=== PATIENT | male | born 1995 | race Caucasian/White ===

== ENCOUNTER 2017-01-25 17:30 | Emergency (ER) | payer OTHER ==
--- NOTE | 2017-01-25 17:35 | ED Physician Documentation ---
PD HPI UPPER EXT INJURY - Stated complaint Stated Complaint: R HAND INJ - History obtained from History obtained from: Patient - History of Present Illness Location: Right, Hand Type of injury: Blunt / blow (he was at work and holding part of small trailer type thing and another rolled into it, causing direct impact then crushing force to the right hand as he was holding a handle. It took about 3-5 seconds for coworker to get the hand freed. Pain in hand. Denies other injury. Has swelling to dorsal mid hand, hurts with finger movements, and has some numbness in middle fingers.) Where injury occurred: Work Timing - onset: Today Timing - duration: Hours (1) Timing - details: Abrupt onset, Still present Worsened by: Moving, Palpating Associated symptoms: Tingling, Swelling. No: Weakness, Discolored Contributing factors: No: Anticoagulated Similar symptoms before: Has not had sx before Recently seen: Not recently seen Review of Systems Constitutional: denies: Fever, Chills Nose: denies: Congestion Throat: denies: Sore throat Respiratory: denies: Cough GI: denies: Vomiting, Diarrhea Skin: denies: Abrasion (s), Laceration (s) Neurologic: denies: Near syncope PD PAST MEDICAL HISTORY - Past Medical History Neuro: None Endocrine/Autoimmune: None Musculoskeletal: None - Present Medications Home Medications: Ambulatory Orders Medication Instructions Recorded Confirmed No Known Home Medications [No 01/25/17 01/25/17 Known Home Medications] - Allergies Allergies/Adverse Reactions: Allergies Allergy/AdvReac Type Severity Reaction Status Date / Time No Known Drug Allergies Allergy Verified 01/25/17 17:39 Results - Vitals Vitals: Vital Signs - 24 hr 01/25/17 17:35 Temperature 36.1 C L Heart Rate 89 Respiratory 16 Rate Blood Pressure 151/85 H O2 Saturation 99 Oxygen O2 Source Room air - Rads (name of study) right hand Radiology: Prelim report reviewed, EMP read contemporaneously (no fractures) PD MEDICAL DECISION MAKING - ED course Complexity details: reviewed results, considered differential (given meds for pain. Will get xray. Will give him ice for swelling. ), d/w patient Departure - Departure Disposition: 01 Home, Self Care Clinical Impression: Hand crush injury Qualifiers: Encounter type: initial encounter Laterality: right Qualified Code(s): S67.21XA - Crushing injury of right hand, initial encounter Condition: Stable Record reviewed to determine appropriate education?: Yes Instructions: ED Contusion Hand Comments: No fractures. Sreedhar wrap, ice and elevate often for a day for swelling. Ibuprofen or Tylenol for pain as needed. Less use of hand if needed for 1-2 days. Recheck if not better over a few days. Forms: Activity restrictions
[2017-01-25 17:39] VITALS: BP 151/85
[2017-01-25] MEDS ORDERED: ACETAMINOPHEN 325 MG TABLET PO ONE (17:42)
[2017-01-25] MEDS ORDERED: IBUPROFEN 600 MG TABLET PO STA (17:42)
[2017-01-25] MEDS ORDERED: IBUPROFEN 600 MG TABLET PO ONE (17:42)
[2017-01-25] MEDS ORDERED: ACETAMINOPHEN 325 MG TABLET PO STA (17:42)
--- NOTE | 2017-01-25 18:12 | XRAY Preliminary Report ---
Exam: XR Hand 3 View RT IMPRESSION: Normal hand radiography. [facility] SITE ID: [id number]
--- NOTE | 2017-01-25 18:15 | XRAY Report ---
EXAM: RIGHT HAND RADIOGRAPHY EXAM DATE: 01/25/2017 05:59 PM. CLINICAL HISTORY: Impact/crush injury at work. COMPARISON: None. TECHNIQUE: 3 views. FINDINGS: Bones: Normal. No fractures or bone lesions. Joints: Normal. No subluxations. Soft Tissues: Unremarkable. IMPRESSION: Normal hand radiography. [facility] Referring Provider Line: [phone] SITE ID: [id number]
== END 2017-01-25 18:20 | disposition home or self-care (01) ==
LOC: ED 17:30
DX: S67.21XA Crushing injury of right hand, initial encounter (principal); W23.0XXA Caught, crushed, jammed, or pinched between moving objects, initial encounter; Y93.89 Activity, other specified; Y92.89 Other specified places as the place of occurrence of the external cause; Y99.0 Civilian activity done for income or pay
CPT/HCPCS: 73130; 99283; A9270

== ENCOUNTER 2018-10-05 07:48 | Emergency (ER) | payer OTHER ==
[2018-10-05 08:06] VITALS: BP 139/82
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
== END 2018-10-05 09:18 | disposition home or self-care (01) ==
LOC: ED 07:48
DX: S46.911A Strain of unspecified muscle, fascia and tendon at shoulder and upper arm level, right arm, initial encounter (principal); V89.2XXA Person injured in unspecified motor-vehicle accident, traffic, initial encounter
CPT/HCPCS: 99283

== ENCOUNTER 2022-02-01 13:54 | Emergency (ER) | payer OTHER ==
[2022-02-01 14:30] LABS: RAPID STREP SCREEN Negative (Negative)
[2022-02-01 15:03] VITALS: BP 118/62
--- NOTE | 2022-02-01 15:40 | ED Physician Documentation ---
History of Present Illness - Stated complaint Stated Complaint: COUGH/CONGESTION - Chief complaint Chief Complaint: Resp - History obtained from History obtained from: Patient - History of Present Illness Timing: How many weeks ago (1) Pain level max: 0 Pain level now: 0 - Additonal information Additional information: 26-year-old male presents to the emergency department with cough, nasal congestion for the past 1 week. No fevers. No chills. Negative COVID test. He states he is just not improved so came here for evaluation. [place] [employer] [place]. No other medical problems. No medications at home. Does not smoke. Review of Systems Constitutional: denies: Fever, Chills Nose: reports: Rhinorrhea / runny nose, Congestion Throat: denies: Sore throat Cardiac: denies: Chest pain / pressure Respiratory: reports: Cough. denies: Dyspnea, Wheezing GI: denies: Nausea, Vomiting, Diarrhea Skin: denies: Rash Musculoskeletal: denies: Neck pain, Back pain Neurologic: denies: Headache PD PAST MEDICAL HISTORY - Past Medical History Past Medical History: No Endocrine/Autoimmune: None Musculoskeletal: None - Past Surgical History Past Surgical History: No - Present Medications Home Medications: Ambulatory Orders Medication Instructions Recorded Confirmed Ibuprofen [Motrin] 800 mg PO Q8H PRN #30 tablet 10/05/18 Benzonatate [Tessalon] 200 mg PO TID PRN #30 cap 02/01/22 Cetirizine HCl/Pseudoephedrine 1 each PO BID PRN #30 ea 02/01/22 [Zyrtec-D Tablet] - Allergies Allergies/Adverse Reactions: Allergies Allergy/AdvReac Type Severity Reaction Status Date / Time No Known Drug Allergies Allergy Verified 02/01/22 14:03 - Social History Does the pt smoke?: No Smoking Status: Never smoker Does the pt drink ETOH?: No Does the pt have substance abuse?: No - Immunizations Immunizations are current?: Yes - POLST Patient has POLST: No PD ED PE NORMAL - Vitals Vital signs reviewed: Yes - General General: Alert and oriented X 3, No acute distress - HEENT HEENT: Ears normal, Moist mucous membranes, Pharynx benign - Neck Neck: Supple, no meningeal sign - Cardiac Cardiac: RRR, Strong equal pulses - Respiratory Respiratory: No respiratory distress, Clear bilaterally - Abdomen Abdomen: Soft, Non tender, Non distended - Derm Derm: Warm and dry - Neuro Neuro: Alert and oriented X 3 - Psych Psych: Normal mood, Normal affect Results - Vitals Vitals: Vital Signs - 24 hr 02/01/22 02/01/22 13:59 15:03 Temperature 36.5 C 36.5 C Heart Rate 80 74 Respiratory 16 12 Rate Blood Pressure 125/61 118/62 O2 Saturation 100 100 Oxygen O2 Source Room air - Labs Labs: Laboratory Tests 02/01/22 14:05 Group A Strep Rapid Negative PD MEDICAL DECISION MAKING - ED course Complexity details: considered differential, d/w patient ED course: Patient with what appears to be a viral upper respiratory infection. No evidence of pneumonia or sepsis. No hypoxia. No respiratory distress. No indication for x-ray. We will have him follow-up with his doctor for further care. Patient counseled regarding signs and symptoms for which I believe and u rgent re-evaluation would be necessary. Patient with good understanding of and agreement to plan and is comfortable going home at this time This document was made in part using voice recognition software. While efforts are made to proofread this document, sound alike and grammatical errors may occur. Departure - Departure Disposition: 01 Home, Self Care Clinical Impression: Viral URI Condition: Good Instructions: ED URI Viral Follow-Up: NILE BARBOZA MD [Primary Care Provider] - Within 1 week Prescriptions: Benzonatate [Tessalon] 200 mg PO TID PRN #30 cap PRN Reason: Cough Cetirizine HCl/Pseudoephedrine [Zyrtec-D Tablet] 1 each PO BID PRN #30 ea PRN Reason: nasal congestion Comments: Your prescriptions were sent to the [facility] pharmacy. Please f ollow-up with your doctor for further care. This will likely last for 2 to 2- 1/2 weeks. Discharge Date/Time: 02/01/22 15:50
== END 2022-02-01 15:50 | disposition home or self-care (01) ==
LOC: ED 13:54
DX: J06.9 Acute upper respiratory infection, unspecified (principal); Z20.822 Contact with and (suspected) exposure to COVID-19
CPT/HCPCS: 87070; 87430; 99283

== ENCOUNTER 2022-09-13 09:05 | Emergency (ER) | payer OTHER ==
--- NOTE | 2022-09-13 12:15 | ED Physician Documentation ---
PD HPI BACK PAIN - Stated complaint Stated Complaint: BACK PX - Chief complaint Chief Complaint: Back Pain - History obtained from History obtained from: Patient - History of Present Illness Timing - onset: Yesterday Timing - duration: Days (1) Timing - details: Abrupt onset, Still present Location: Lower, Left Quality: Pain, Spasm, Other (radiates down left posterior leg. He said onset was abrupt when lifting 100 lb weight at the gym. He thought his alignment was straight. Sudden pain with radiation to posterior left thigh and feeling of tingling down leg that lasted briefly.) Associated symptoms: Numbness (for brief few seconds as the pain started and again this morning when he bent to lift his little son.). No: Fever, Weakness Worsened by: Movement, Twisting. No: Palpation Contributing factors: Lifting Similar symptoms before: Has not had sx before Recently seen: Not recently seen Review of Systems Constitutional: denies: Fever, Chills GI: denies: Abdominal Pain Musculoskeletal: reports: Back pain Neurologic: denies: Focal weakness PD PAST MEDICAL HISTORY - Past Medical History Cardiovascular: None Respiratory: None Neuro: None Endocrine/Autoimmune: None Musculoskeletal: None - Past Surgical History Past Surgical History: No - Present Medications Home Medications: Ambulatory Orders Medication Instructions Recorded Confirmed HYDROcod/ACETAM 5/325 [Weldona 5/325] 1 ea PO Q6H PRN #18 tablet 09/13/22 HYDROcod/ACETAM 5/325 [Weldona 5/325] 1 ea PO Q6H PRN #18 tablet 09/13/22 Meloxicam [Mobic] 7.5 mg PO BID 10 Days #20 tablet 09/13/22 tiZANidine [Zanaflex] 4 mg PO Q8H PRN #25 tablet 09/13/22 - Allergies Allergies/Adverse Reactions: Allergies Allergy/AdvReac Type Severity Reaction Status Date / Time No Known Drug Allergies Allergy Verified 09/13/22 09:30 - Social History Does the pt smoke?: No Smoking Status: Never smoker Does the pt drink ETOH?: No Does the pt have substance abuse?: No - Immunizations Immunizations are current?: Yes - POLST Patient has POLST: No PD ED PE NORMAL - Vitals Vital signs reviewed: Yes - General General: Alert and oriented X 3, Well developed/nourished, Other (appears uncomfortable with guarded ROM of the lower back. ) - Abdomen Abdomen: Soft, Non tender - Back Back: No CVA TTP, No spinal TTP (he is tender left lumbar to SI area. No noted deformity. ) - Derm Derm: Normal color, Warm and dry - Neuro Neuro: Alert and oriented X 3, No motor deficit, No sensory deficit, Other (normal patellar reflexes. ) Results - Vitals Vitals: Oxygen O2 Source Room air - Rads (name of study) lumbar CT Radiology: Prelim report reviewed (No acute process, normal vertebrae and discs/canal space. ), See rad report PD Medical Decision Making - ED course Complexity details: reviewed results (no acute disc process nor compressive deformities. No mass/tumors/etc. ), considered differential (pain is left lower back but it was abrupt onset during vertical load of heavy lifting, with some neuro symptoms down left leg, so my concern is for compression injury and herniated disc in particular. ), d/w patient Drug Therapy Requiring Monitoring for Toxicity: given IM Toradl for pain. He is driving home so not given opioids here. Departure - Departure Disposition: 01 Home, Self Care Clinical Impression: Acute myofascial strain of lumbosacral region, Radiculitis Condition: Stable Record reviewed to determine appropriate education?: Yes Instructions: ED Sprain Strain Lumbar Follow-Up: NILE BARBOZA MD [Primary Care Provider] - Prescriptions: Meloxicam [Mobic] 7.5 mg PO BID 10 Days #20 tablet HYDROcod/ACETAM 5/325 [Weldona 5/325] 1 ea PO Q6H PRN #18 tablet PRN Reason: Pain HYDROcod/ACETAM 5/325 [[place]eldona 5/325] 1 ea PO Q6H PRN #18 tablet PRN Reason: Pain tiZANidine [Zanaflex] 4 mg PO Q8H PRN #25 tablet PRN Reason: Spasms Comments: Your CT scan does not show any acute fracture, compression, dislocation, herniated disc or nerve root compression. The radiology report has actually just resulted and does not see any abnormality either. Presume an acute muscle strain with some pressure or spasming around the nerves leading to some of the radiation of symptoms into the leg. There is no signs of "pinched nerve" coming from the spine area. We will treat this with gentle range of motion and stretching, heat for the low back, chiropractic or massage are good as well. Avoid heavy lifting or repetitive bending or use for the next 3 to 5 days as this is improving. Anti-inflammatories as well as muscle relaxant to help with the symptoms. Add Tylenol every 4-6 hours if needed for pain or hydrocodone if needed for worse pain. I sent prescriptions for these to the [facility] pharmacy in [place]. I gave you a work note for 3 days. I am prescribing a short course of narcotic pain medication for you. These are potentially dangerous and addictive medications that should be used carefully. These medications may constipate you. Take an [id number] stool softener such as docusate twice daily with plenty of water while taking these medications. If you go 24 hours without a bowel movement, take [id number] MiraLAX, per package instructions. Do not drink or drive while taking these medications. If you received narcotic or sedating medications while in the emergency department do not drive for 24 hours. Store this medication in a safe, secure place and out of reach of children. It is a violation of federal law to give or sell this medication to another person or to use in a manner other than prescribed. The ED will not refill narcotic prescriptions, including prescriptions lost or stolen. You can dispose of unwanted medications at the [facility]'s office or at several pharmacies such as [facility]. Forms: Activity restrictions Discharge Date/Time: 09/13/22 14:43
[2022-09-13] MEDS ORDERED: KETOROLAC 30 MG/ML VIAL IM STA (12:51)
[2022-09-13] MEDS ORDERED: ACETAMINOPHEN 325 MG TABLET PO STA (12:51)
[2022-09-13] MEDS ORDERED: methocarbamoL 500 MG TABLET PO STA (12:51)
[2022-09-13] MEDS ORDERED: KETOROLAC 15 MG/ML VIAL IM STA (12:59)
--- NOTE | 2022-09-13 14:13 | CT Report ---
PROCEDURE: LUMBAR SPINE WO INDICATIONS: abrupt low back pain, heavy lifting. TECHNIQUE: Noncontrast 3 mm thick sections acquired from the T12 level to the sacrum. Sagittal and coronal refo rmats were constructed. For radiation dose reduction, the following was used: automated exposure co ntrol, adjustment of mA and/or kV according to patient size. COMPARISON: None. FINDINGS: Image quality: Excellent. Bones: There is normal bony alignment. No acute vertebral body compression fractures. No suspiciou s lytic or blastic bony lesions. Central spinal caliber is of normal overall caliber. No pars defec ts. No visualized disc bulges or spinal stenosis. Soft tissues: No retroperitoneal masses or hematomas. Visualized aorta is normal in caliber. IMPRESSION: No visualized fracture or dislocation. Reviewed by: Fern Perez MD on 09/13/2022 2:12 PM PST Approved by: Fern Perez MD on 09/13/2022 2:12 PM PST Station ID: [id number]
[2022-09-13 14:40] VITALS: BP 123/70
== END 2022-09-13 14:43 | disposition home or self-care (01) ==
LOC: ED 09:05
DX: S39.012A Strain of muscle, fascia and tendon of lower back, initial encounter (principal); X58.XXXA Exposure to other specified factors, initial encounter; Y93.B9 Activity, other involving muscle strengthening exercises
CPT/HCPCS: 72131; 96372; 99283; 99284; A9270

== ENCOUNTER 2022-10-27 07:00 | Emergency (ER) | payer OTHER ==
[2022-10-27 07:28] LABS: RAPID STREP SCREEN Negative (Negative)
[2022-10-27] MEDS ORDERED: predniSONE 20 MG TABLET PO STA (08:53)
--- NOTE | 2022-10-27 09:03 | ED Physician Documentation ---
PD HPI HEENT - Stated complaint Stated Complaint: DISCHARGE FROM EYE/SORE THROAT - Chief complaint Chief Complaint: Heent - History obtained from History obtained from: Patient - Additional information Additional information: The patient comes to the emergency department chief complaint of sore throat for the past week. He is also had a runny nose and cough. The patient was [place] strep, [place], and his son was sick the week before. He states that now he is developed a pink right eye with some crusty discharge, and is concerned for pinkeye. He denies any other complaints at this time. No fevers or shortness of breath. No nausea or vomiting. PD PAST MEDICAL HISTORY - Past Medical History Past Medical History: Yes Cardiovascular: None Respiratory: None Neuro: None Endocrine/Autoimmune: None GI: None : None HEENT: None Psych: None Musculoskeletal: Chronic back pain Derm: None - Past Surgical History Past Surgical History: No - Present Medications Home Medications: Ambulatory Orders Medication Instructions Recorded Confirmed Gentamicin 0.3% Ophth Drops 1 drops OPTH BID #5 ml 10/27/22 [Garamycin] HYDROcodone/ACET 7.5/325 JOESLUIS 5 - 10 ml PO Q6HR PRN #80 ml 10/27/22 [Lortab 7.5/325 Joseluis] predniSONE [Deltasone] 60 mg PO DAILY 5 Days #15 tablet 10/27/22 - Allergies Allergies/Adverse Reactions: Allergies Allergy/AdvReac Type Severity Reaction Status Date / Time No Known Drug Allergies Allergy Verified 10/27/22 07:12 - Social History Does the pt smoke?: No Smoking Status: Never smoker Does the pt drink ETOH?: No Does the pt have substance abuse?: No - Immunizations Immunizations are current?: Yes - POLST Patient has POLST: No PD ED PE NORMAL - Vitals Vital signs reviewed: Yes - General General: Alert and oriented X 3, No acute distress, Well developed/nourished - HEENT HEENT: Atraumatic, PERRL, EOMI, Moist mucous membranes, Other (Mild injection R eye. No drainage. No eyelid swelling. No proptosis.) - Neck Neck: Supple, no meningeal sign, No adenopathy - Cardiac Cardiac: RRR, No murmur - Respiratory Respiratory: No respiratory distress, Clear bilaterally - Abdomen Abdomen: Soft, Non tender, Non distended - Derm Derm: Warm and dry - Extremities Extremities: No deformity - Neuro Neuro: Alert and oriented X 3 - Psych Psych: Normal mood, Normal affect Results - Vitals Vitals: Oxygen O2 Source Room air - Labs Labs: Microbiology 10/27/22 07:10 Group A Strep Throat Culture - Final Throat Beta Hemolytic Strep Group G Laboratory Tests 10/27/22 07:10 Group A Strep Rapid Negative PD Medical Decision Making - ED course Complexity details: considered differential, d/w patient ED course: The pt's sx are consistent with a viral illness and conjunctivitis. I have started him on gentamicin ophthalmic drops, and we have discussed symptomatic management at home. Departure - Departure Disposition: Home, Self Care Clinical Impression: Viral upper respiratory infection Conjunctivitis Qualifiers: Conjunctivitis type: acute Acute conjunctivitis type: viral Laterality: right Qualified Code(s): B30.9 - Viral conjunctivitis, unspecified Condition: Stable Instructions: ED Conjunctivitis Nonspecific, ED Viral Syndrome Prescriptions: HYDROcodone/ACET 7.5/325 JOSELUIS [Lortab 7.5/325 Joseluis] 5 - 10 ml PO Q6HR PRN #80 ml PRN Reason: Pain 5-7 predniSONE [Deltasone] 60 mg PO DAILY 5 Days #15 tablet Gentamicin 0.3% Ophth Drops [Garamycin] 1 drops OPTH BID #5 ml Comments: Your strep test is negative again today. You most likely have one of the many viruses that go around this time a year and cause similar symptoms. Sometimes, you can get one virus that causes upper respiratory symptoms and while this is starting to get better, you may catch another one that causes similar symptoms, given the impression that it is the same illness but getting worse again when actually, it is 2 different viruses. Ultimately, these viral illnesses will resolve on their own without antibiotics or further intervention. A prescription for the eyedrops, as well as for a couple of medicines to help with your sore throat, has been electronically transmitted to the [facility] pharmacy in [place] at your request. Please take the next few days off work until you are feeling better. Forms: Activity restrictions Discharge Date/Time: 10/27/22 09:19
[2022-10-27 09:20] VITALS: BP 137/83
--- NOTE | 2022-11-01 11:30 | ED Physician Documentation ---
ED Addendum - Addendum Addendum: 11/01/22 11:29 Recent visit for sore throat. Initial rapid strep negative. Subsequent culture grew beta-hemolytic strep group G. Nursing staff tasked with calling patient. If symptoms improved no treatment necessary if not improved a prescription for penicillin 500 mg twice daily has been sent to the patient's preferred pharmacy
== END 2022-10-27 09:19 | disposition home or self-care (01) ==
LOC: ED 07:00
DX: J06.9 Acute upper respiratory infection, unspecified (principal); H10.31 Unspecified acute conjunctivitis, right eye
CPT/HCPCS: 87070; 87430; 99283; J7512

== ENCOUNTER 2023-03-16 12:43 | Outpatient (CLI) | payer OTHER ==
--- NOTE | 2023-03-16 19:52 | MRI Report ---
PROCEDURE: MRI of the brain and orbits with and without contrast INDICATIONS: 27-year-old male with irregular involuntary eye movements and vision loss CONTRAST: gadavist 6.4 TECHNIQUE: Noncontrast sagittal T1 spin echo, axial FLAIR, axial gradient echo, axial diffusion and ADC acquired through the brain. Coronal STIR, thin-slice axial T1 spin echo through the orbits. After the admin istration of contrast, thin slice axial and coronal T1 spin echo with fat saturation through the orbi ts, axial T1 spin echo with fat saturation through the brain. COMPARISON: None. FINDINGS: Image quality: Excellent. Orbits: Globes are symmetrical. The optic nerves are normal in size, without abnormal signal or enh ancement. No retrobulbar masses or fat abnormalities. The extra-ocular muscles are normal and symme tric in appearance. Lacrimal glands are normal. Optic chiasm is normal. Periorbital soft tissues a ppear normal. CSF spaces: Ventricles are normal in size and shape. Basal cisterns are patent. No extra-axial flu id collections. Brain: No intracranial bleeds or mass effects. No abnormal intracranial enhancement. Freeman-white ma tter interface is intact. Diffusion weighted images demonstrate no acute ischemic insults. Pituitar y gland appears normal, without sellar or suprasellar masses. Brainstem appears normal. Normal intr avascular flow voids are present. Skull and face: Calvarial marrow is normal in signal. Sinuses: Sinuses and mastoids are clear. IMPRESSION: Normal MRI of the brain and orbits with and without contrast Reviewed by: Lisandro Cardoso MD on 03/16/2023 6:50 PM [facility] Approved by: Lisandro Cardoso MD on 03/16/2023 6:50 PM [facility] Station ID: [id number]
== END 2023-03-16 12:44 | disposition home or self-care (01) ==
LOC: DI 12:43
PROVIDERS: ATTEND Optometrist
DX: H55.89 Other irregular eye movements (principal)
CPT/HCPCS: 70543; A9585

== ENCOUNTER 2023-07-22 08:44 | Outpatient (CLI) | payer OTHER ==
--- NOTE | 2023-07-22 09:13 | Sleep Patient Instructions ---
Sleep Center Visit Summary - Patient Visit Information Reason for Visit: Initial consult for evaluation of sleep disordered breathing and other sleep issues. - Patient Instructions Instructions Attached: Sleep Study Home Monitor Additional Instructions: You will be completing a sleep study, either an in-lab polysomnography (PSG) or home sleep study (HST). You will follow-up in the sleep care office after the sleep study is completed to hear the results and talk about therapy, if needed. You will be called by our office staff to schedule this appointment, but you may contact us with any questions. - Clinic Information Contact: [facility] [address] [place] [address] [email or web address] T: [phone]
--- NOTE | 2023-07-22 09:17 | SLEEP CARE CONSULTATION ---
Information from patient questionnaire entered by Reji Farrar. I have reviewed and concur with the information entered by Reji Farrar. This document represents the service I personally performed and the decisions made by me, Saima Nova ARNP. History of Present Illness Service Date and Time: 07/22/2023 0844 Reason for Visit: New patient Chief Complaint: reports: Unrefreshed sleep, Snoring, Fatigue, Frequent awakenings at night Date of Onset: 1YR Usual bedtime: 8PM Time it takes to fall asleep: 2MIN BUT VARAIES Snores at night: Yes Observed to quit breathing while asleep: No Sleeps alone due to snoring: No Number of times waking at night: 3-5 Reasons for waking at night: reports: Other (UNKNOWN). denies: Choking, Gasping for air Toss, Turn, or Twitch while sleeping: Yes Recalls having dreams: Yes Usually gets out of bed at: 430AM Feels refreshed in the morning: No Morning headache: Yes (almost daily; last until gets cup of coffee) Sleepy or fatigued during the day: Yes Ever fallen asleep while driving: No (BUT HAVE DOZED) Takes day naps: No Dreams during day naps: No Prior sleep studies: No Additional HPI information: I had the pleasure of seeing PAOLO ULLOA today regarding the possibility of him having a sleep disorder. His current complaints are fatigue, frequent night awakening, snoring and unrefreshed sleep. He says his is telling him that his snoring is getting progressively worse. He has noticed that he is always tired and does not every feel refreshed in the mornings. He says he gets a feeling of things "crawling on him", "itchy" on legs and whole body and he has to shower to get it to calm enough to sleep. He wakes up for unknown reasons or being thirsty. He denies waking up choking or gasping for air. His has never told him he stopped breathing in his sleep. His father has sleep apnea and is on a PAP device. - Parasomnia Symptoms Ever been unable to move upon waking from sleep: Yes (has had sleep paralysis a lot, last incident last month) Walks in sleep: No Talks in sleep: Yes Ever felt weak in the knees when startled or emotional: No Bothered by creepy, crawly, restless sensations in legs: Yes (just about every day; learned to shower before bed to eliminate it) Problems with memory or concentration: Yes (both) Subjective Initial [place] Sleepiness Scale score: 11 (07/22/23) Past Medical History Past Medical History: reports: Other (hip surgery 2020) Social History The patient's occupation is a AM. Patient is Single and lives in . Have you smoked in the past 12 months: No Alcohol use: No Caffeine use: Yes Caffeine amount and frequency: 1 CUP DAILY Family History Family history of sleep disordered breathing: Yes Family Hx Sleep Apnea: Mother: Snoring, Father: Snoring, Sleep apnea - Treated, Sibling: Snoring Allergies and Home Medications Known drug allergies: No Drug allergies reviewed: Yes Home medication list reviewed: Yes Allergy and home medication list: Allergies No Known Drug Allergies Allergy (Verified 07/21/23 15:29) Home Medications Medication Instructions Recorded Confirmed Last Taken Type No Known Home Medications 07/22/23 07/22/23 Unknown History Review of Systems Cardiovascular: denies: high blood pressure Gastrointestinal: denies: heartburn Neurological: reports: headaches Psychiatric: reports: anxiety Ear/Nose/Throat: denies: tonsillectomy Endocrine: denies: thyroid disease Physical Exam Vital signs obtained and entered by: REJI Licona MA Blood Pressure: 118/68 (LEFT ARM) Cuff size: regular Heart Rate: 73 O2 Saturation: 99 Height: 5 ft 4 in Weight: 149 lb 6.4 oz Body Mass Index: 25.6 BMI Classification: Overweight Neck circumference: 14.75 Mouth and throat: narrow oropharynx Soft palate: normal Hard palate: normal Uvula: normal Uvula visualization: 100% Mallampati Class I Tongue: enlarged in size with teeth rosenthal on lateral edges Tonsils: small Neck: normal w/o lymphadenopathy or thyromegaly Heart: regular rate and rhythm Lungs: clear bilaterally Impression and Plan 1. Suspected Obstructive Sleep Apnea-Hypopnea Syndrome, as suggested by a history of loud and irregular snoring, morning headache, frequent awakening during the night, unrefreshed sleep, cognitive impairment, and excessive daytime sleepiness. Narrow oropharynx and obesity are common predisposing factors for obstructive sleep apnea-hypopnea syndrome. I recommend proceeding to polysomnography to confirm the diagnosis and to assess severity. If the patient has significant sleep disordered breathing, a manual CPAP titration study will also be performed to find the optimal treatment pressure. I informed the patient of what the sleep studies involve and after some discussion, obtained agreement to proceed. The pathophysiology of obstructive sleep apnea-hypopnea syndrome was discussed with the patient and health risks of cardiovascular and cerebrovascular disease if not treated. Risks of drowsy driving discussed in detail and patient advised to avoid long distance driving and to veneer puller at the first sign of drowsiness. Patient agreed to plan. * Schedule polysomnography. * Avoid long distance driving or driving when feeling sleepy. * Avoid alcohol, sedative and muscle relaxant around bedtime. * Review instructions provided by trained office staff on how to prepare for the sleep study. * Return for follow-up after sleep study completed. Plan: PSG/HST Visit Type: In Office Time Spent with Patient (minutes): 24 Provider Statement: I spent 100% of the Face to Face Visit with the patient with greater than 50% spent counseling the patient and coordination of care.
[2023-07-22 09:27] VITALS: BP 118/68; O2SAT 99
== END 2023-07-22 08:45 | disposition home or self-care (01) ==
LOC: SC 08:44
PROVIDERS: ATTEND Nurse Practitioner Family
DX: R06.83 Snoring (principal); G47.8 Other sleep disorders; G47.10 Hypersomnia, unspecified; R53.83 Other fatigue; E66.3 Overweight; Z68.25 Body mass index [BMI] 25.0-25.9, adult
CPT/HCPCS: 99202; 99212

== ENCOUNTER 2023-08-10 12:26 | Outpatient (CLI) | payer OTHER | END 2023-08-10 12:27 | disposition home or self-care (01) | LOC: SC 12:26 | PROVIDERS: ATTEND Nurse Practitioner Family | DX: R06.83 Snoring (principal); G47.8 Other sleep disorders; G47.10 Hypersomnia, unspecified; R53.83 Other fatigue | CPT/HCPCS: 95806 ==

== ENCOUNTER 2023-08-16 15:45 | Outpatient (CLI) | payer OTHER ==
--- NOTE | 2023-08-16 15:32 | SLEEP CARE CONSULTATION ---
Information from patient questionnaire entered by Taylor Farrar. I have reviewed and concur with the information entered by Taylor Farrar. This document represents the service I personally performed and the decisions made by , Saima Nova ARNP. History of Present Illness Service Date and Time: 08/16/2023 1500 Initial [place] Sleepiness Scale score: 11 (07/22/23) Current [place] Sleepiness Scale score: 12 (08/16/22) Additional HPI information: PAOLO ULLOA returns via video visit for follow up and results of the recently performed home sleep study. The patient was informed of the following findings: No significant sleep disordered breathing with an average AHI of 1.4 and cyrus oxygen saturation of 92%. I explained the pathophysiology behind obstructive sleep apnea. Patient does not have sleep apnea and was advised how weight gain could increase the risk of developing sleep apnea in the future. Patient has light snoring. Snoring can also be treated with an oral appliance from a dentist. Advised to check insurance coverage. In addition, an ENT evaluation can be do to see if other treatment is indicated. Patient does not drink alcohol. Patient was cautioned about risks of drowsy driving until sleepiness symptoms resolve. Sleep Study - Results Type of Sleep Study: Home sleep study (COMPLETED 08/10/23) Prior sleep studies: No Polysomnography/Home Sleep Study results: Physician Impression: The quality of the study is good. The length of the study is adequate (> 240 minutes). Please also see the tabulated and graphic data. 1. No significant sleep disordered breathing, with an AHI of 1.4/hr and cyrus SaO2 of 92%. During the study, the patient had 10 apneas (10 obstructive, 0 central, 0 mixed) and 2 hypopneas. The longest episode lasted 91.0 seconds. The patient slept adequately in supine position (supine AHI was 1.6 and non-supine, 0.75). Allergies and Home Medications Known drug allergies: No Drug allergies reviewed: Yes Home medication list reviewed: Yes (no changes) Allergy and home medication list: Allergies No Known Drug Allergies Allergy (Verified 08/16/23 14:36) Review of Systems Review of systems same as previous: Yes (NO CHANGE) Physical Exam Vital signs obtained and entered by: TAYLOR Licona MA Height: 5 ft 4 in (PER PT) Weight: 138 lb (PER PT) Body Mass Index: 23.6 BMI Classification: Normal Impression and Plan Snoring but no significant sleep disordered breathing. Patient advised that an oral appliance can be used to reduce snoring. This would require a dental consultation. Patient cautioned not to use other online appliances as can cause bite issues. Patient is advised to check if insurance will cover. An ENT consult can also be helpful to determine if any other treatment is an option. * Maintain a healthy weight * The patient is cautioned about driving until sleepiness is completely resolved . * Return as needed for follow up. Follow up with Sleep Care in: as needed Visit Type: Telehealth Video Video Type: Doximity Patient Location: outof stat Location of Provider: Office Patient agrees and consents to this telehealth visit type: Yes Patient agrees to have their insurance billed: Yes Time Spent with Patient (minutes): 13 Provider Statement: I spent 100% of the Telehealth Video Call with the patient with greater than 50% spent counseling the patient and coordination of care.
== END 2023-08-16 15:46 | disposition home or self-care (01) ==
LOC: SC 15:45
PROVIDERS: ATTEND Nurse Practitioner Family
DX: R06.83 Snoring (principal)